=== PATIENT | female | born 1955 | race Caucasian/White ===

== ENCOUNTER 2025-06-13 15:15 | Outpatient (RCR) | payer BC, SELFPAY | END 2025-06-13 23:59 | disposition home or self-care (01) | LOC: RPT 15:15 | PROVIDERS: ATTENDING PHYSICIAN Physician Assistant | DX: N39.3 Stress incontinence (female) (male) (principal); Z73.6 Limitation of activities due to disability; M62.81 Muscle weakness (generalized) | CPT/HCPCS: 97014; 97110; 97112; 97140; 97163; 97530 ==

== ENCOUNTER → 2025-07-13 10:57 | Outpatient (REF) | payer BC, SELFPAY | LOC: RAD 10:57 | PROVIDERS: ATTENDING PHYSICIAN Urology; FAMILY PHYSICIAN Family Medicine | DX: N39.42 Incontinence without sensory awareness (principal); N39.3 Stress incontinence (female) (male) | CPT/HCPCS: 76770; 76856 ==

== ENCOUNTER 2025-07-13 13:09 | Outpatient (RCR) | payer BC, MEDICARE, SELFPAY | END 2025-07-13 23:59 | disposition home or self-care (01) | LOC: RPT 13:09 | PROVIDERS: ATTENDING PHYSICIAN Urology; FAMILY PHYSICIAN Physician Assistant | DX: N39.3 Stress incontinence (female) (male) (principal); Z73.6 Limitation of activities due to disability; M62.81 Muscle weakness (generalized) | CPT/HCPCS: 97110; 97112; 97530 ==

== ENCOUNTER 2025-09-07 09:42 | Outpatient (RCR) | payer BC, MEDICARE, SELFPAY | END 2025-09-07 14:12 | disposition home or self-care (01) | LOC: RPT 09:42 | PROVIDERS: ATTENDING PHYSICIAN Urology; FAMILY PHYSICIAN Physician Assistant | DX: N39.3 Stress incontinence (female) (male) (principal); Z73.6 Limitation of activities due to disability; M62.81 Muscle weakness (generalized) | CPT/HCPCS: 97112; 97530 ==